=== PATIENT | male | born 1975 | race Caucasian/White ===

== ENCOUNTER 2023-12-03 09:33 | Emergency (ER) | payer SELFPAY ==
[2023-12-03] VITALS (13 sets, daily range): BP systolic 127–170; BP diastolic 74–100; PULSE 46–72; RESP 12–22; TEMP 36.3; O2SAT 93–100
--- NOTE | ~2023-12-03 | XR_ITS ---
XR chest 2V Ordering provider: Ivett Melissa MD History: 48 years Male with . WEAKNESS, UPPER CHEST PAIN . Comparison: None. FINDINGS: MEDIASTINUM: The cardiac silhouette is not enlarged. LUNGS: No infiltrates, effusions or pneumothorax. OTHER: No free air under the diaphragm. IMPRESSION: No acute cardiopulmonary pathology. Reviewed, dictated and finalized at location A.
--- NOTE | 2023-12-03 09:40 | ECG_ITS ---
Test Date: 2023-12-03 09:42:48 Measurements Intervals [place] Rate: 58 P: 67 AL: 164 QRS: 44 QRSD: 104 T: 28 QT: 425 QTc: 418 Interpretive Statements SINUS BRADYCARDIA BASELINE ARTIFACT- I, II, III, AVR, AVL, AVF BORDERLINE ECG No previous ECG available for comparison Electronically Signed On 12-03-2023 09:47:26 CDT by Favian Castro D.O.
[2023-12-03 10:16] LABS: Basophils Percent Auto 0.3 % (0.2-1.2); Hematocrit 45.9 % (42.0-52.0); Lymphocytes Absolute Auto 1.72 K/mm3 (0.9-3.2); Lymphocytes Percent Auto 43.4 % (18.3-44.2); Mean Corpuscular HGB Conc 34.9 g/dl (32-36); Mean Corpuscular Hemoglobin 30.5 pg (26-34); Mean Corpuscular Volume 87.6 fl (80-100); Mean Platelet Volume 9.4 fl (7.4-10.4); Monocytes Absolute Auto 0.4 K/mm3 (0.1-0.6); Monocytes Percent Auto 8.8 % (2.6-8.5); Neutrophils Absolute Auto 1.8 K/mm3 (1.3-6.7); Neutrophils Percent Auto 46.5 % (45.5-73.1); Platelet Count Result 168 k/mm3 (150-375); Red Blood Count 5.24 M/mm3 (4.6-6.20); Red Cell Distribution Width 12.4 % (11.5-14.5)
[2023-12-03 10:26] LABS: Prothrombin Time 13.1 Seconds (11.1-14.7)
[2023-12-03 10:27] LABS: Partial Thromboplastin Time 27.6 Seconds (22.3-36.8)
[2023-12-03 10:35] LABS: Alanine Aminotransferase 28 U/L (6-50); Albumin Level 4.7 g/dL (3.5-5.1); Alkaline Phosphatase 88 U/L (38-126); Anion Gap 9 mmol/L (4-12); Aspartate Amino Transferase 25 U/L (17-59); Bilirubin,Total 0.6 mg/dL (0.2-1.3); Blood Urea Nitrogen 18 mg/dL (9-20); Calcium 9.2 mg/dL (8.4-10.2); Carbon Dioxide 29 mmol/L (22-30); Chloride 103 mmol/L (98-107); Estimated CRCL calculation 85 ml/min; Estimated Glomerular Filt Rate > 60; Glucose 98 mg/dL (65-110); Lipase 98 U/L (23-300); Potassium 4.2 mmol/L (3.4-5.0); Sodium 141 mmol/L (137-145)
--- NOTE | 2023-12-03 10:38 | ED.CHESTPAIN ---
HPI - Chest Pain General Chief Complaint: Chest Pain Stated Complaint: chest pain Time Seen by Provider: 12/03/23 10:32 History of Present Illness HPI narrative: Patient is a healthy 48-year-old male with no past medical history however he does not regularly follow with a doctor here with chest tightness. He states that the chest tightness is midsternal in began this morning. He denies any radiation. He denies any associated nausea, lightheadedness, shortness of breath. He notes that it seems to be worse with positional changes. He denies any associated cough, congestion, fever, chills. He does note some associated increased fatigue. He did have similar symptoms about 1 week ago. The symptoms lasted about 1 day and were very similar nature and self resolved. Given his repeat symptoms today his recommended he come into the emergency department for further evaluation. He has no prior cardiac history, no prior history of PE or DVT. Related Data Allergies Allergy/AdvReac Type Severity Reaction Status Date / Time No Known Allergies Allergy Verified 12/03/23 09:44 Review of Systems Review of Systems: All systems reviewed & are unremarkable except as noted in HPI and below Exam Narrative: GENERAL: Well-appearing, well-nourished, and in no acute distress. HEAD: Normocephalic, atraumatic. EYES: PERRLA and EOMI. ENT: Nares clear. Mucous membranes moist. NECK: Supple. CHEST: Clear to auscultation. No respiratory distress. No chest wall tenderness. HEART: Regular rate and rhythm. Normal peripheral pulses. ABDOMEN: Soft, nontender, nondistended. EXTREMITIES: Normal range of motion. No edema. No calf tenderness. SKIN: Warm, dry, no rash. NEURO: No focal deficits. Alert and oriented x3. PSYCH: Normal mood and affect. Course Course Emergency Course: Chart review performed, patient here with weakness and upper chest pain that began this morning, last week had similar symptoms, triage vitals show hypertension, otherwise within normal limits. No prior visits in our system. Patient seen evaluated, nontoxic appearing, alert, oriented. He is here with chest pain which is recurrent over the last 1 week. Initial triage workup reviewed, unremarkable. He has minimal cardiac risk factors. He does not see a primary care doctor. Will do repeat troponin as well as COVID, influenza, RSV given increased fatigue. Suspect likely musculoskeletal strain versus costochondritis, less likely ACS or viral illness. Patient agreeable to workup and plan. Repeat troponin negative. COVID, influenza, RSV negative. Heart score of 1. The results of pertinent diagnostic studies and exam findings were discussed. The patient?s provisional diagnosis and plan of care were discussed with the patient and present family. The patient and/or present family expressed understanding of the diagnosis and plan. The nurse was instructed to provide written instructions and appropriate follow-up information. The patient understands their need and responsibility to obtain additional follow-up as instructed. The risks of medications administered and prescribed were discussed with the patient and family present. Vital Signs Vital signs: Vital Signs Temperature 97.4 F L 12/03/23 09:41 Pulse Rate 56 L 12/03/23 09:41 Respiratory Rate 16 12/03/23 09:41 Blood Pressure 170/100 H 12/03/23 09:41 Pulse Oximetry 99 12/03/23 09:41 Temperature 97.4 F L 12/03/23 09:41 Pulse Rate 49 L 12/03/23 14:01 Respiratory Rate 16 12/03/23 14:01 Blood Pressure 127/80 12/03/23 14:01 Pulse Oximetry 100 12/03/23 14:01 Oxygen Delivery Room Air 12/03/23 10:10 MDM - Chest Pain Lab Data 12/03/23 10:09 12/03/23 10:09 Labs: Lab Results 12/03/23 12/03/23 12/03/23 Range/Units 10:09 12:08 12:51 WBC 4.0 L (4.5-10.0) K/mm3 RBC 5.24 (4.6-6.20) M/mm3 Hgb 16.0 (14.0-18.0) g/dL Hct 45.9 (42.0-52.0)
[2023-12-03 10:47] LABS: Troponin I < 0.012 ng/mL (0.000-0.034)
[2023-12-03 12:49] LABS: Influenza A QL RT-PCR Negative (Negative); Influenza B QL RT-PCR Negative (Negative); RSV RNA, RT-PCR Negative (Negative); SARS-CoV-2 RNA PCR Negative (Negative)
--- NOTE | 2023-12-03 12:56 | ECG_ITS ---
Test Date: 2023-12-03 12:58:41 Measurements Intervals [place] Rate: 49 P: 45 NE: 165 QRS: 37 QRSD: 99 T: 18 QT: 426 QTc: 385 Interpretive Statements SINUS BRADYCARDIA ABNORMAL ECG Compared to ECG 12/03/2023 09:42:48 HEART RATE HAS DECREASED Electronically Signed On 12-03-2023 13:02:50 CDT by Favian Castro D.O.
[2023-12-03 13:21] LABS: Troponin I < 0.012 ng/mL (0.000-0.034)
[2023-12-03] MEDS: ACETAMINOPHEN 500 MG TABLET 1000 MG PO (13:33)
== END 2023-12-03 14:02 | disposition home or self-care (01) ==
PROVIDERS: Emergency Provider Student in an Organized Health Care Education/Training Program
DX: R07.89 Other chest pain (principal); Z20.822 Contact with and (suspected) exposure to COVID-19
CPT/HCPCS: 36415; 71046; 80053; 83690; 84484; 85025; 85610; 85730; 87637; 93005; 99284; A9270